=== PATIENT | female | born 1935 | race Caucasian/White ===

== ENCOUNTER 2020-11-08 15:26 | Emergency (ER) | payer MEDICARE ==
[~2020-11-08] VITALS: Ht 157.5 cm; Wt 34.0 kg
[~2020-11-08 15:26] MED LIST: ACET-3209 PO; DOCU-28 PO; DULR RC; HYDR12.5 PO; LOSA50TA3 PO; MAGN400O6 PO; MORP15TA PO; MORP30TA60 PO; MULT-620 PO; OMEP20CA15 PO
[2020-11-08 15:41] VITALS: BP 203/170
[2020-11-08] MEDS ORDERED: TETanus/Pertussis (Acell)/Diphther VAC/PF (Tdap-Adult) 0.5ml syringe IMVAC ONE (16:30)
[2020-11-08] MEDS ORDERED: LIDOcaine 1% W/epiNEPHrine 1:200,000 10ml vial IJ ONE (16:30)
[2020-11-08] MEDS ORDERED: acetaminophen 325mg tablet PO ONE (16:30)
== END 2020-11-08 20:21 | disposition home or self-care (01) ==
LOC: ER 15:27
DX: S02.85XA Fracture of orbit, unspecified, initial encounter for closed fracture (principal); S01.81XA Laceration without foreign body of other part of head, initial encounter; S06.0X0A Concussion without loss of consciousness, initial encounter; R51.9 Headache, unspecified; E78.00 Pure hypercholesterolemia, unspecified; I10 Essential (primary) hypertension; M19.90 Unspecified osteoarthritis, unspecified site; Z20.3 Contact with and (suspected) exposure to rabies; Z98.890 Other specified postprocedural states; Z79.899 Other long term (current) drug therapy; W19.XXXA Unspecified fall, initial encounter; Y93.89 Activity, other specified; Y92.89 Other specified places as the place of occurrence of the external cause; Y99.8 Other external cause status
CPT/HCPCS: 12011; 70450; 70486; 72125; 90471; 90715; 99285